=== PATIENT | female | born 1960 | race Caucasian/White ===

== ENCOUNTER 2019-10-17 19:38 | Emergency (ER) | payer OTHER ==
[~2019-10-17] VITALS: Ht 154.9 cm; Wt 90.7 kg
[2019-10-17 19:53] VITALS: Ht 154.9 cm; Wt 90.7 kg
[2019-10-17] MEDS ORDERED: ASPIRIN325 MG PO (19:54)
[2019-10-17] MEDS ORDERED: MULTI-DAY VITAM1 TAB PO (19:54)
[2019-10-17] MEDS ORDERED: ALBUTEROL2.5 MG/3 M INH (19:57)
[2019-10-17] MEDS ORDERED: ALBUTEROL SULF8.5 GM INH (19:57)
[2019-10-17 20:30] LABS: BASOPHILS 0.4 % (0-2); EOSINOPHILS 2.5 % (0-7); HEMATOCRIT 35.6 % (36.0-48.0); HEMOGLOBIN 10.9 g/dL (12-16); IMMATURE GRANULOCYTES 0.3 % (0-5); LYMPHOCYTES 21.8 % (15-50); MCH 25.5 pg (26.0-34.0); MCHC 30.6 g/dL (31.0-37.0); MCV 83.2 fL (80.0-100.0); MEAN PLATELET VOLUME 9.3 fL (7.4-10.4); MONOCYTES 6.3 % (2-11); NEUTROPHILS 68.7 % (40-80); PLATELET COUNT 347 10x3/uL (130-400); RBC 4.28 10x6/uL (4.00-5.40); RDW 15.8 % (11.5-14.5)
[2019-10-17 21:00] LABS: ANION GAP 10.5 mmol/L (8-16); CALCIUM 8.3 mg/dL (8.5-10.1); CARBON DIOXIDE 29.9 mmol/L (21.0-32.0); CREATININE - SERUM 0.9 mg/dL (0.6-1.3); POTASSIUM - SERUM 4.4 mmol/L (3.5-5.1)
[2019-10-17 21:11] LABS: ALBUMIN 3.4 g/dL (3.4-5.0); BILIRUBIN - TOTAL 0.19 mg/dL (0.2-1.3)
[2019-10-17] MEDS ORDERED: FUROSEMIDE20 MG PO (21:34)
[2019-10-17 22:07] VITALS: BP 187/90
== END 2019-10-17 22:07 | disposition home or self-care (01) ==
LOC: D.ER 19:38
PROVIDERS: Family Medicine
DX: I87.8 Other specified disorders of veins (principal)